=== PATIENT | male | born 1965 | race Caucasian/White ===

== ENCOUNTER 2016-07-15 06:00 | Observation (INO) | payer BC ==
[~2016-07-15] VITALS: Ht 175.3 cm; Wt 93.2 kg
[~2016-07-15 06:00] MED LIST: ASPIR-LOW81 MG PO; CLARITIN,ALAVAR10 MG PO; FENOFIBRATE160 M1 PO; FLOMAX0.4 MG PO; LOPERAMIDE2 MG PO; NEXIUM20 MG PO; PERCOCET 5/31 TABLET PO; PRAVACHOL40 MG PO; SERTRALINE HCL50 MG PO; TORADOL10 MG PO; ZOFRAN4 MG PO
[2016-07-15 06:29] LABS: HEMATOCRIT 45.7 % (38.0-50.0); MCH 27.7 PG (29.0-34.0); MCV 83.7 FL (86-99); MEAN PLAT.VOLUME 9.7 uM^3 (9.0-12.4); PLATELET COUNT 389 K/uL (156-360); RBC DIS.WIDTH-CV 12.6 % (11.8-14.6); RBC DIS.WIDTH-SD 38.2 % (39-53); RED BLOOD COUNT 5.46 M/uL (4.00-5.50); WHITE BLOOD COUNT 7.1 K/uL (4.1-10.2)
[2016-07-15 06:38] LABS: CHLORIDE 107 mEq/L (99-109); POTASSIUM 4.2 mEq/L (3.7-5.4); SODIUM 140 mEq/L (136-147)
[2016-07-15 06:40] LABS: GLUCOSE 115 mg/dL (70-99)
[2016-07-15 06:41] LABS: ANION GAP 9 MEQ/L (2-14)
[2016-07-15 06:43] LABS: GFR ESTIMATE (CALCULATED) > 59 mL/min/
[2016-07-15 06:44] LABS: UREA NITROGEN (BUN) 18 mg/dL (9-23)
[2016-07-15 06:49] LABS: TROP-I INTERPRETATION NEGATIVE; TROPONIN-I < 0.01 ng/mL (0.0-0.30)
[2016-07-15] MEDS ORDERED: DAILY VALUE1 EACH PO (08:46)
[2016-07-15] MEDS ORDERED: COREG3.125 M1 PO (08:47)
[2016-07-15 09:08] LABS: HDL CHOLESTEROL 26 MG/DL (Desirable>=40); LDL CHOLESTEROL 119 mg/dL (Desirable<100); NON-HDL CHOLESTEROL 180 mg/dL (Desirable<160); TOTAL CHOLESTEROL 206 mg/dL (Desirable<200); TRIGLYCERIDES 307 MG/DL (Normal: <150)
[2016-07-15 12:50] VITALS: BP 134/85
[2016-07-15 13:30] LABS: TROP-I INTERPRETATION NEGATIVE; TROPONIN-I < 0.01 ng/mL (0.0-0.30)
[2016-07-15 14:14] LABS: Estimated Average Glucose 114 mg/dL (70-123); HEMOGLOBIN A1c (GLYCOHEMOGLOB) 5.6 % HGB (Below 5.7)
[2016-07-15 15:36] VITALS: BP 137/85
[2016-07-15 19:34] VITALS: BP 142/85
[2016-07-15 19:41] LABS: TROP-I INTERPRETATION NEGATIVE; TROPONIN-I < 0.01 ng/mL (0.0-0.30)
[2016-07-15 23:31] VITALS: BP 130/56
[2016-07-16 03:41] VITALS: BP 128/79
[2016-07-16 08:09] VITALS: BP 131/86
[2016-07-16] MEDS ORDERED: NITROSTAT0.4 MG SL (09:35)
[2016-07-16] MEDS ORDERED: ATORVASTATIN CA20 MG PO (09:35)
[2016-07-16] MEDS ORDERED: GEMFIBROZIL600 MG PO (09:44)
[2016-07-16 10:33] LABS: ALKALINE PHOSPHATASE 47 IU/L (3-129); ANION GAP 10 MEQ/L (2-14); CHLORIDE 103 MEQ/L (99-109); GFR ESTIMATE (CALCULATED) > 59 mL/min/; GLUCOSE 114 mg/dL (70-99); POTASSIUM 4.2 MEQ/L (3.7-5.4); SAMPLE HEMOLYSIS CHECK 0; SAMPLE ICTERIC CHECK 0; SAMPLE LIPEMIA CHECK 0; SODIUM 139 MEQ/L (136-147); TOTAL BILIRUBIN 0.7 MG/DL (0.0-1.0); UREA NITROGEN (BUN) 16 mg/dL (9-23)
[2016-07-16 10:41] LABS: HEMATOCRIT 45.7 % (38.0-50.0); MCH 27.4 PG (29.0-34.0); MCHC 32.4 G/DL (30.0-36.0); MCV 84.5 FL (86-99); PLATELET COUNT 403 K/uL (156-360); RBC DIS.WIDTH-CV 12.7 % (11.8-14.6); RBC DIS.WIDTH-SD 38.5 % (39-53); RED BLOOD COUNT 5.41 M/uL (4.00-5.50); WHITE BLOOD COUNT 6.4 K/uL (4.1-10.2)
== END 2016-07-16 12:22 | disposition home or self-care (01) ==
LOC: EME 06:00 → EDOF 08:01 → 5WEST 12:40
PROVIDERS: Hospitalist; Internal Medicine
DX: R07.89 Other chest pain (principal); E78.1 Pure hyperglyceridemia; R55 Syncope and collapse; I10 Essential (primary) hypertension; E78.5 Hyperlipidemia, unspecified; I25.2 Old myocardial infarction; K21.9 Gastro-esophageal reflux disease without esophagitis; F41.9 Anxiety disorder, unspecified; F32.9 Major depressive disorder, single episode, unspecified; K76.0 Fatty (change of) liver, not elsewhere classified
CPT/HCPCS: 71020; 76705; 80048; 80053; 80061; 83036; 84439; 84443; 84484; 85027; 93005; 99281; 99285; G0378; J1650; J2270